=== PATIENT | female | born 1985 | race African-American/Black ===

== ENCOUNTER 2017-02-16 15:32 | Emergency (ER) | payer SELFPAY ==
[2017-02-16 16:04] LABS: Bilirubin Small (Negative); Blood, Urine Large (Negative); Glucose, Urine (Dipstick) Negative (Negative); Ketone, Urine Trace mg/dL (Negative); Nitrite Positive (Negative); Protein, Urine (Dipstick) 100 mg/dL (Neg-Trace)
[2017-02-16 16:06] LABS: Bacteria/HPF 4+ HPF (None Seen); Hyaline Casts/LPF 7-10 HYALINE CAST LPF (0-3 Hyaline); RBC/HPF GREATER THAN 50-TNTC HPF (0-3); Squamous Epithelial 21-50 HPF (0-3); WBC/HPF 21-50 HPF (0-3)
[2017-02-16 16:20] LABS: Yeast-All Forms 1+ HPF (None Seen)
[2017-02-16 16:22] LABS: #Basophils 0.1 thou/uL (0.0-0.2); #Lymphocytes 1.6 thou/uL (1.20-3.40); #Monocytes 0.9 thou/uL (0.11-0.59); %Basophils 0.4 % (0.0-1.0); %Eosinophils 0.4 % (0.0-10.0); %Lymphocytes 12.5 % (21.0-51.0); %Monocytes 7.1 % (0.0-10.0); Mean Platelet Volume 6.9 fL (7.4-10.4); Red Blood Cell (RBC) Count 4.67 mill/uL (4.20-5.40); White Blood Cell (WBC) Count 12.6 thou/uL (4.8-10.8)
[2017-02-16] MEDS ORDERED: Acetaminophen 500 MG TAB ONE (16:27)
[2017-02-16 16:39] LABS: ALT (SGPT) 18 U/L (8-55); AST (SGOT) 17 U/L (5-34); Alkaline Phosphatase 96 U/L (40-150); Anion Gap 15 mmol/L (10-20); BUN (Urea Nitrogen) 9 mg/dL (7.0-18.7); Bilirubin, Total 0.6 mg/dL (0.2-1.2); Calc. Creatinine Clearance 0 mL/min (70-130); Calcium 10.1 mg/dL (7.8-10.44); Carbon Dioxide 24 mmol/L (22-29); Chloride 100 mmol/L (98-107); Estimated GFR-MDRD Greater than 90; Globulin 4.9 g/dL (2.4-3.5); Protein, Total 9.1 g/dL (6.0-8.3)
== END 2017-02-16 18:34 | disposition home or self-care (01) ==
LOC: ERS 15:32
DX: N30.90 Cystitis, unspecified without hematuria (principal); I10 Essential (primary) hypertension; D50.0 Iron deficiency anemia secondary to blood loss (chronic); F41.9 Anxiety disorder, unspecified; F17.210 Nicotine dependence, cigarettes, uncomplicated; Z79.899 Other long term (current) drug therapy
CPT/HCPCS: 80053; 81003; 81015; 81025; 85025; 96365; 96366; 99406; J1956

== ENCOUNTER 2017-04-16 14:43 | Emergency (ER) | payer MEDICAID, OTHER, SELFPAY ==
--- NOTE | 2017-04-16 15:15 | RAD ---
THREE VIEWS LEFT HAND: Date: 04-16-17 History: Left hand pain. FINDINGS: There is no evidence of fracture, dislocation or other osseous abnormality involving the left hand. IMPRESSION: No acute osseous abnormality. POS: [facility]
[2017-04-16] MEDS ORDERED: methylPREDNISolone Sod Succ/PF 125 MG/2 ML VIAL ONE (17:21)
[2017-04-16] MEDS ORDERED: Water For Inject, Bacteriostat 30 ML ONE (17:22)
== END 2017-04-16 17:47 | disposition home or self-care (01) ==
LOC: ERS 14:43
DX: M79.89 Other specified soft tissue disorders (principal); I10 Essential (primary) hypertension; D50.0 Iron deficiency anemia secondary to blood loss (chronic); F41.9 Anxiety disorder, unspecified; F17.210 Nicotine dependence, cigarettes, uncomplicated; Z79.899 Other long term (current) drug therapy
CPT/HCPCS: 96372; J2930

== ENCOUNTER 2017-05-08 17:37 | Emergency (ER) | payer MEDICAID, OTHER, SELFPAY ==
[2017-05-08] MEDS ORDERED: Acetaminophen 500 MG TAB ONE (18:19)
[2017-05-08 19:04] LABS: Bilirubin Negative (Negative); Blood, Urine Large (Negative); Clarity TURBID (Clear); Glucose, Urine (Dipstick) Negative (Negative); Leukocyte Moderate (Negative); Nitrite Positive (Negative); Protein, Urine (Dipstick) 30 mg/dL (Neg-Trace); Specific Gravity, Urine 1.029 (1.002-1.036); Urobilinogen 0.2 mg/dL (0.2-1.0)
[2017-05-08 19:05] LABS: Pregnancy Test - Urine (BHCG) Negative (Negative); Pregu Control Background? CLEAR/WHITE (CLR/WHITE); Pregu Control Bar Appear? YES (CONTROL BAR); Specific Gravity 1.029 (1.002-1.036)
[2017-05-08 19:07] LABS: Bacteria/HPF 3+ HPF (None Seen); Hyaline Casts/LPF 7-10 HYALINE CAST LPF (0-3 Hyaline); RBC/HPF GREATER THAN 50-TNTC HPF (0-3); Squamous Epithelial 21-50 HPF (0-3)
[2017-05-08] MEDS ORDERED: HYDROcodone/Acetaminophen 10/325 mg Tablet ONE (19:11)
[2017-05-08] MEDS ORDERED: predniSONE 20 MG TAB ONE ×2 (20:37→20:41)
[2017-05-11 01:39] LABS: Chlamydia by PCR Not Detected (NotDetected); GC by PCR Not Detected (NotDetected)
== END 2017-05-08 20:44 | disposition home or self-care (01) ==
LOC: ERS 17:37
DX: M25.561 Pain in right knee (principal); M25.562 Pain in left knee; M25.572 Pain in left ankle and joints of left foot; M79.645 Pain in left finger(s); N39.0 Urinary tract infection, site not specified; D50.0 Iron deficiency anemia secondary to blood loss (chronic); F41.9 Anxiety disorder, unspecified; F17.210 Nicotine dependence, cigarettes, uncomplicated
CPT/HCPCS: 81003; 81015; 81025; 87077; 87086; 87186; 87480; 87491; 87510; 87591; 87660; 99406; J7506

== ENCOUNTER 2017-05-12 17:04 | Emergency (ER) | payer OTHER, SELFPAY ==
[2017-05-12] MEDS ORDERED: hydrOXYzine 25 MG TAB ONE (17:39)
[2017-05-12] MEDS ORDERED: Sulfameth/Trimethoprim DS 800-160mg TAB ONE (17:39)
[2017-05-12] MEDS ORDERED: Ketorolac Tromethamine 30 MG/ML VIAL ONE (17:39)
== END 2017-05-12 18:57 | disposition home or self-care (01) ==
LOC: ERS 17:04
DX: N39.0 Urinary tract infection, site not specified (principal); I10 Essential (primary) hypertension; F41.9 Anxiety disorder, unspecified; F17.210 Nicotine dependence, cigarettes, uncomplicated
CPT/HCPCS: 96372; J1885

== ENCOUNTER 2017-11-01 16:09 | Emergency (ER) | payer OTHER | END 2017-11-01 18:20 | disposition home or self-care (01) | LOC: ERS 16:09 | DX: G57.92 Unspecified mononeuropathy of left lower limb (principal); I10 Essential (primary) hypertension; D50.9 Iron deficiency anemia, unspecified; F17.210 Nicotine dependence, cigarettes, uncomplicated | CPT/HCPCS: 99283 ==

== ENCOUNTER 2017-11-29 06:13 | Emergency (ER) | payer OTHER ==
[2017-11-29] MEDS ORDERED: Ketorolac Tromethamine 60 MG/2 ML VIAL ONE (06:59)
== END 2017-11-29 07:15 | disposition home or self-care (01) ==
LOC: ERS 06:13
DX: L02.412 Cutaneous abscess of left axilla (principal); I10 Essential (primary) hypertension; F41.9 Anxiety disorder, unspecified; F17.210 Nicotine dependence, cigarettes, uncomplicated
CPT/HCPCS: 96372; J1885

== ENCOUNTER 2017-12-26 17:46 | Emergency (ER) | payer OTHER ==
[2017-12-26 18:28] LABS: #Basophils 0.1 thou/uL (0.0-0.2); #Eosinphils 0.2 thou/uL (0.0-0.7); #Monocytes 0.5 thou/uL (0.11-0.59); #Neutrophils 5.5 thou/uL (1.40-6.50); %Basophils 0.8 % (0.0-1.0); %Eosinophils 1.9 % (0.0-10.0); %Lymphocytes 32.7 % (21.0-51.0); %Monocytes 5.1 % (0.0-10.0); %Neutrophils 59.5 % (42.0-75.0); Hemoglobin 12.2 g/dL (12.0-16.0); Mean Corpuscular HGB CONC 31.9 g/dL (32.0-36.0); Mean Corpuscular Hemoglobin 27.2 pg (27.0-31.0); Mean Corpuscular Volume 85.2 fL (78.0-98.0); Mean Platelet Volume 7.2 fL (7.4-10.4); Platelet Count 385 thou/uL (130-400); RBC Distribution Width 12.6 % (11.5-14.5); White Blood Cell (WBC) Count 9.3 thou/uL (4.8-10.8)
[2017-12-26 18:33] LABS: Bilirubin Negative (Negative); Blood, Urine Trace (Negative); Clarity CLOUDY (Clear); Glucose, Urine (Dipstick) Negative (Negative); Leukocyte Negative (Negative); Nitrite Negative (Negative); Protein, Urine (Dipstick) Negative (Neg-Trace); Specific Gravity, Urine 1.024 (1.002-1.036); Urobilinogen 0.2 mg/dL (0.2-1.0); pH, Urine 6.5 (5.0-9.0)
[2017-12-26 18:37] LABS: Bacteria/HPF 1+ HPF (None Seen); Hyaline Casts/LPF 0-3 HYALINE CAST LPF (0-3 Hyaline); Pathc Cast-AUWi Flag 0.29 (0-2.49); Pregnancy Test - Urine (BHCG) Negative (Negative); Pregu Control Background? CLEAR/WHITE (CLR/WHITE); Pregu Control Bar Appear? YES (CONTROL BAR); Specific Gravity 1.024 (1.002-1.036); WBC/HPF 0-3 HPF (0-3)
[2017-12-26 18:49] LABS: ALT (SGPT) 19 U/L (8-55); AST (SGOT) 16 U/L (5-34); Albumin 4.5 g/dL (3.5-5.0); Alkaline Phosphatase 86 U/L (40-150); Anion Gap 14 mmol/L (10-20); BUN (Urea Nitrogen) 9 mg/dL (7.0-18.7); Bilirubin, Total 0.2 mg/dL (0.2-1.2); Calc. Creatinine Clearance 0 mL/min (70-130); Carbon Dioxide 21 mmol/L (22-29); Chloride 103 mmol/L (98-107); Estimated GFR-MDRD 74; Globulin 4.4 g/dL (2.4-3.5); Glucose 103 mg/dL (70-105); Lipase 26 U/L (8-78); Potassium 3.6 mmol/L (3.5-5.1); Protein, Total 8.9 g/dL (6.0-8.3); Sodium 134 mmol/L (136-145)
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
[2017-12-26] MEDS ORDERED: Ketorolac Tromethamine 60 MG/2 ML VIAL ONE (21:08)
[2017-12-26] MEDS ORDERED: Dexamethasone 10 MG/ML VIAL ONE (21:08)
== END 2017-12-26 21:33 | disposition home or self-care (01) ==
LOC: ERS 17:46
DX: M79.645 Pain in left finger(s) (principal); R52 Pain, unspecified; I10 Essential (primary) hypertension; F41.9 Anxiety disorder, unspecified; F17.210 Nicotine dependence, cigarettes, uncomplicated; Z79.899 Other long term (current) drug therapy
CPT/HCPCS: 36415; 80053; 81003; 81015; 81025; 83690; 85025; 96372; J1100; J1885

== ENCOUNTER 2017-12-29 21:00 | Emergency (ER) | payer OTHER ==
[2017-12-29 22:17] LABS: #Basophils 0.1 thou/uL (0.0-0.2); #Eosinphils 0.1 thou/uL (0.0-0.7); #Monocytes 0.7 thou/uL (0.11-0.59); #Neutrophils 10.9 thou/uL (1.40-6.50); %Basophils 0.5 % (0.0-1.0); %Eosinophils 0.4 % (0.0-10.0); %Lymphocytes 20.4 % (21.0-51.0); %Monocytes 4.9 % (0.0-10.0); %Neutrophils 73.7 % (42.0-75.0); Hemoglobin 12.2 g/dL (12.0-16.0); Mean Corpuscular HGB CONC 32.3 g/dL (32.0-36.0); Mean Corpuscular Hemoglobin 27.6 pg (27.0-31.0); Mean Corpuscular Volume 85.6 fL (78.0-98.0); Mean Platelet Volume 7.5 fL (7.4-10.4); Platelet Count 371 thou/uL (130-400); Red Blood Cell (RBC) Count 4.41 mill/uL (4.20-5.40); White Blood Cell (WBC) Count 14.7 thou/uL (4.8-10.8)
[2017-12-29 22:29] LABS: Bilirubin Negative (Negative); Blood, Urine Negative (Negative); Clarity CLOUDY (Clear); Glucose, Urine (Dipstick) Negative (Negative); Leukocyte Negative (Negative); Nitrite Negative (Negative); Protein, Urine (Dipstick) Negative (Neg-Trace); Specific Gravity, Urine 1.021 (1.002-1.036); Urobilinogen 0.2 mg/dL (0.2-1.0)
[2017-12-29 22:39] LABS: ALT (SGPT) 33 U/L (8-55); AST (SGOT) 24 U/L (5-34); Albumin 4.3 g/dL (3.5-5.0); Alkaline Phosphatase 80 U/L (40-150); Anion Gap 14 mmol/L (10-20); BUN (Urea Nitrogen) 14 mg/dL (7.0-18.7); Bilirubin, Total 0.2 mg/dL (0.2-1.2); Calc. Creatinine Clearance 0 mL/min (70-130); Calcium 10.1 mg/dL (7.8-10.44); Carbon Dioxide 27 mmol/L (22-29); Chloride 102 mmol/L (98-107); Estimated GFR-MDRD Greater than 90; Globulin 4.3 g/dL (2.4-3.5); Glucose 115 mg/dL (70-105); Potassium 3.7 mmol/L (3.5-5.1); Protein, Total 8.6 g/dL (6.0-8.3); Sodium 139 mmol/L (136-145)
== END 2017-12-30 00:46 | disposition home or self-care (01) ==
LOC: ERS 21:00
DX: R11.2 Nausea with vomiting, unspecified (principal); G62.9 Polyneuropathy, unspecified; I10 Essential (primary) hypertension; D50.9 Iron deficiency anemia, unspecified; F41.9 Anxiety disorder, unspecified; F17.210 Nicotine dependence, cigarettes, uncomplicated; Z79.899 Other long term (current) drug therapy; Z71.6 Tobacco abuse counseling
CPT/HCPCS: 36415; 80053; 81003; 85025; 99406

== ENCOUNTER 2018-06-20 14:13 | Emergency (ER) | payer BC, OTHER ==
[~2018-06-20 14:13] MED LIST: ISOVUE-370 76%-LOCM 1 ML ONE
[2018-06-20 14:54] LABS: #Basophils 0.1 thou/uL (0.0-0.2); #Eosinphils 0.1 thou/uL (0.0-0.7); #Lymphocytes 2.4 thou/uL (1.20-3.40); #Monocytes 0.5 thou/uL (0.11-0.59); #Neutrophils 5.5 thou/uL (1.40-6.50); %Basophils 0.7 % (0.0-1.0); %Eosinophils 1.1 % (0.0-10.0); %Lymphocytes 28.3 % (21.0-51.0); %Monocytes 5.5 % (0.0-10.0); %Neutrophils 64.4 % (42.0-75.0); Hemoglobin 12.3 g/dL (12.0-16.0); Mean Corpuscular Hemoglobin 26.7 pg (27.0-31.0); Mean Corpuscular Volume 83.5 fL (78.0-98.0); Mean Platelet Volume 6.9 fL (7.4-10.4); Platelet Count 371 thou/uL (130-400); RBC Distribution Width 12.8 % (11.5-14.5); Red Blood Cell (RBC) Count 4.62 mill/uL (4.20-5.40); White Blood Cell (WBC) Count 8.5 thou/uL (4.8-10.8)
--- NOTE | 2018-06-20 15:05 | RAD ---
FRONTAL VIEW CHEST: INDICATION: Chest tightness, pain. FINDINGS: The cardiac silhouette is accentuated by portable technique. No lobar consolidation or effusion. IMPRESSION: Stable chest, referencing 03/27/2013 exam. POS: [facility]
[2018-06-20 15:12] LABS: ALT (SGPT) 20 U/L (8-55); AST (SGOT) 16 U/L (5-34); Albumin 4.4 g/dL (3.5-5.0); Alkaline Phosphatase 88 U/L (40-150); Anion Gap 11 mmol/L (10-20); BUN (Urea Nitrogen) 9 mg/dL (7.0-18.7); Bilirubin, Total 0.2 mg/dL (0.2-1.2); CK (CPK) 91 U/L (29-168); Calc. Creatinine Clearance 0 mL/min (70-130); Calcium 10.2 mg/dL (7.8-10.44); Carbon Dioxide 28 mmol/L (22-29); Chloride 102 mmol/L (98-107); Estimated GFR-MDRD Greater than 90; Globulin 3.6 g/dL (2.4-3.5); Glucose 99 mg/dL (70-105); Potassium 3.6 mmol/L (3.5-5.1); Sodium 137 mmol/L (136-145)
[2018-06-20] MEDS ORDERED: hydrOXYzine Pamoate 25 mg Capsule ONE (16:05)
[2018-06-20 16:47] LABS: Pregnancy Test - Urine (BHCG) Negative (Negative); Pregu Control Background? CLEAR/WHITE (CLR/WHITE); Pregu Control Bar Appear? YES (CONTROL BAR); Specific Gravity 1.008 (1.002-1.036)
--- NOTE | 2018-06-20 17:30 | CT ---
CT ANGIOGRAM THORAX WITH IV CONTRAST AND 3D RECONSTRUCTIONS 06/20/18 HISTORY: Intermittent tension sensation left upper chest for three days. COMPARISON: CT thorax on 06/09/16 and CTA chest on 03/19/16. FINDINGS: There is suboptimal timing of the contrast bolus, and the pulmonary arteries are not well opacified. Pulmonary embolus could not be excluded based on this examination. The thoracic aorta is normal in ca liber without evidence of an aortic dissection. The thyroid gland remains diffusely enlarged and slightly heterogeneous in appearance. There is decre ased attenuation of the anterior superior mediastinum, but this is a stable finding compared to prior exams and could be related to residual thymic tissue. There are mildly prominent bilateral axillary lymph nodes. Lymph nodes in the right axilla are not enlarged by CT size criteria and overall stable in appearance compared to prior exams. However, there is a single and mildly enlarged left axillary l ymph node measuring 1.4 cm in short axis dimension. There were fluid collections seen within the adip ose layer right anterior chest wall and in the right breast on prior CT exam which are not visualized on this exam. The heart is mildly enlarged. The lungs remain clear. The visualized upper abdomen has a normal CT appearance. No other interval ch gwyn. IMPRESSION: 1. Suboptimal timing of the contrast bolus resulting in suboptimal contrast opacification of the pulmonary arteries, and a pulmonary embolus cannot be excluded based on this exam. 2. Thoracic aorta is normal in caliber without evidence of an aortic dissection. 3. Mild cardiomegaly. 4. Single mildly enlarged left axillary lymph node measuring 1.4 cm. The exact etiology is uncer tain. 5. Stable mild heterogeneity and diffuse enlargement of the thyroid gland. POS: [facility]
--- NOTE | 2018-06-20 19:56 | NM ---
VENTILATION PERFUSION STUDY: 06/20/18 HISTORY: Intermittent pinching sensation in the left upper chest for three days. RADIOPHARMACEUTICALS: 16.3 millicuries Xenon 133, gas inhaled and 6.1 millicuries technetium 99m labeled MAA, IV. COMPARISON: Chest x-ray on 06/20/18 as well as CTA chest on 06/20/18. FINDINGS: There is normal uptake in distribution of radiotracer seen on the ventilation portion of the study. T here is washout of radiotracer noted on the washout images. No ventilation defect is identified. Perfusion images demonstrate normal distribution of radiotracer throughout the lungs bilaterally. No segmental or subsegmental perfusion defect is seen. There is no ventilation perfusion mismatch. Accom panying chest x-ray also obtained on today's date demonstrates that the lungs are clear. IMPRESSION: Very low probability for pulmonary embolus. POS: [facility]
--- NOTE | 2018-06-22 12:04 | EKG ---
Test Reason : Blood Pressure : / mmHG Vent. Rate : 098 BPM Atrial Rate : 098 BPM P-R Int : 126 ms QRS Dur : 082 ms QT Int : 374 ms P-R-T Axes : 051 054 058 degrees QTc Int : 477 ms Normal sinus rhythm Nonspecific T wave abnormality Abnormal ECG Confirmed by SMITA RESENDIZ DO ([id number]), news videotape editor EFREN GAMA ([id number]) on 06/22/2018 12:04:13 PM Referred By: Confirmed By:SMITA RESENDIZ DO
== END 2018-06-20 19:34 | disposition home or self-care (01) ==
LOC: ERS 14:13
DX: R07.89 Other chest pain (principal); I10 Essential (primary) hypertension; F41.9 Anxiety disorder, unspecified; F17.210 Nicotine dependence, cigarettes, uncomplicated; Z79.899 Other long term (current) drug therapy
CPT/HCPCS: 36415; 71045; 71275; 78582; 80053; 81025; 82550; 84484; 85025; 85379; 93005; 94760; A9540; A9558; Q0177; Q9966

== ENCOUNTER 2018-10-02 15:57 | Emergency (ER) | payer BC ==
[2018-10-02 16:30] LABS: #Basophils 0.1 thou/uL (0.0-0.2); #Eosinphils 0.2 thou/uL (0.0-0.7); #Lymphocytes 2.5 thou/uL (1.20-3.40); #Monocytes 0.6 thou/uL (0.11-0.59); #Neutrophils 6.4 thou/uL (1.40-6.50); %Basophils 0.8 % (0.0-1.0); %Eosinophils 2.4 % (0.0-10.0); %Lymphocytes 25.7 % (21.0-51.0); %Monocytes 5.6 % (0.0-10.0); %Neutrophils 65.4 % (42.0-75.0); Hemoglobin 12.3 g/dL (12.0-16.0); Mean Corpuscular HGB CONC 33.3 g/dL (32.0-36.0); Mean Corpuscular Hemoglobin 27.6 pg (27.0-31.0); Mean Corpuscular Volume 82.8 fL (78.0-98.0); Mean Platelet Volume 7.2 fL (7.4-10.4); Platelet Count 311 thou/uL (130-400); RBC Distribution Width 12.8 % (11.5-14.5); Red Blood Cell (RBC) Count 4.47 mill/uL (4.20-5.40); White Blood Cell (WBC) Count 9.8 thou/uL (4.8-10.8)
[2018-10-02 17:02] LABS: ALT (SGPT) 19 U/L (8-55); AST (SGOT) 24 U/L (5-34); Albumin 4.2 g/dL (3.5-5.0); Alkaline Phosphatase 73 U/L (40-150); Anion Gap 13 mmol/L (10-20); BUN (Urea Nitrogen) 9 mg/dL (7.0-18.7); Bilirubin, Total 0.3 mg/dL (0.2-1.2); Calc. Creatinine Clearance 0 mL/min (70-130); Calcium 9.8 mg/dL (7.8-10.44); Carbon Dioxide 23 mmol/L (22-29); Chloride 103 mmol/L (98-107); Estimated GFR-MDRD Greater than 90; Globulin 4.1 g/dL (2.4-3.5); Glucose 94 mg/dL (70-105); Lipase 22 U/L (8-78); Potassium 4.1 mmol/L (3.5-5.1); Protein, Total 8.3 g/dL (6.0-8.3); Sodium 135 mmol/L (136-145)
[2018-10-02 18:39] LABS: Bilirubin Negative (Negative); Blood, Urine Trace (Negative); Clarity Clear (Clear); Glucose, Urine (Dipstick) Negative (Negative); Leukocyte Negative (Negative); Nitrite Negative (Negative); Protein, Urine (Dipstick) Negative (Neg-Trace); Specific Gravity, Urine 1.015 (1.005-1.030); Urobilinogen 0.2 mg/dL (0.2-1.0)
[2018-10-02 18:42] LABS: Pregnancy Test - Urine (BHCG) Negative (Negative); Pregu Control Background? CLEAR/WHITE (CLR/WHITE); Pregu Control Bar Appear? YES (CONTROL BAR); Specific Gravity 1.015 (1.002-1.036)
[2018-10-02 18:50] LABS: Bacteria/HPF Rare-Few HPF (None Seen); Hyaline Casts/LPF 0-3 HYALINE CAST LPF (0-3 Hyaline); RBC/HPF 0-3 HPF (0-3); WBC/HPF None Seen HPF (0-3)
--- NOTE | 2018-10-02 19:32 | CT ---
CT abdomen and pelvis noncontrast HISTORY: Left flank pain. COMPARISON: 03/23/2016. FINDINGS: Each renal collecting system, ureter, and urinary bladder are decompressed. Tiny calcificat ions, no larger than 2 mm, are present within the superior pole of the right kidney and the inferior pole of the left kidney. Lack of contrast limits evaluation for other abnormalities. Fat protrudes into an umbilical hernia th at does not contain bowel. An oval 4.4 cm cyst is present at the left adnexa. No free fluid. IMPRESSION: Tiny nonobstructing bilateral renal calculi. Left ovarian cyst, 4.4 cm.
[2018-10-02] MEDS ORDERED: Ketorolac Tromethamine 30 MG/ML VIAL ONE (19:43)
== END 2018-10-02 20:00 | disposition home or self-care (01) ==
LOC: ERS 15:57
DX: N20.0 Calculus of kidney (principal); N83.202 Unspecified ovarian cyst, left side; I10 Essential (primary) hypertension; F17.210 Nicotine dependence, cigarettes, uncomplicated
CPT/HCPCS: 36415; 74176; 80053; 81003; 81015; 81025; 83690; 85025; J1885

== ENCOUNTER 2019-05-25 16:08 | Emergency (ER) | payer BC ==
[2019-05-25 18:06] LABS: #Basophils 0.1 thou/uL (0.0-0.2); #Eosinphils 0.2 thou/uL (0.0-0.7); #Lymphocytes 2.2 thou/uL (1.20-3.40); #Monocytes 0.6 thou/uL (0.11-0.59); #Neutrophils 6.6 thou/uL (1.40-6.50); %Basophils 0.5 % (0.0-1.0); %Eosinophils 1.7 % (0.0-10.0); %Monocytes 6.2 % (0.0-10.0); %Neutrophils 68.6 % (42.0-75.0); Hemoglobin 13.1 g/dL (12.0-16.0); Mean Corpuscular HGB CONC 33.9 g/dL (32.0-36.0); Mean Corpuscular Hemoglobin 28.5 pg (27.0-31.0); Mean Corpuscular Volume 83.8 fL (78.0-98.0); Mean Platelet Volume 7.3 fL (7.4-10.4); Platelet Count 315 thou/uL (130-400); RBC Distribution Width 12.3 % (11.5-14.5); Red Blood Cell (RBC) Count 4.59 mill/uL (4.20-5.40); White Blood Cell (WBC) Count 9.6 thou/uL (4.8-10.8)
[2019-05-25 18:28] LABS: ALT (SGPT) 26 U/L (8-55); AST (SGOT) 21 U/L (5-34); Albumin 4.5 g/dL (3.5-5.0); Alkaline Phosphatase 79 U/L (40-110); Anion Gap 13 mmol/L (10-20); BUN (Urea Nitrogen) 10 mg/dL (7.0-18.7); Bilirubin, Total 0.3 mg/dL (0.2-1.2); CK (CPK) 82 U/L (29-168); Calc. Creatinine Clearance 0 mL/min (70-130); Carbon Dioxide 25 mmol/L (22-29); Chloride 103 mmol/L (98-107); Estimated GFR-MDRD Greater than 90; Globulin 3.8 g/dL (2.4-3.5); Glucose 103 mg/dL (70-105); Potassium 3.5 mmol/L (3.5-5.1); Protein, Total 8.3 g/dL (6.0-8.3); Sodium 137 mmol/L (136-145)
--- NOTE | 2019-05-25 18:30 | RAD ---
TWO VIEW CHEST: Date: 05-25-2019 Comparison: 06-20-18 History: Intermittent right sided chest pain. FINDINGS: No pneumothorax, pleural fluid, focal consolidation or alveolar edema. Heart and mediastinal contours unremarkable. IMPRESSION: No acute findings. POS: [facility]
[2019-05-25 18:51] LABS: BHCG - Serum Negative (NEGATIVE); Pregs Control Background? CLEAR/WHITE (CLR/WHITE); Pregs Control Bar Appear? YES (CONTROL BAR)
[2019-05-25] MEDS ORDERED: Aspirin 325 MG TAB ONE (20:54)
== END 2019-05-25 21:59 | disposition home or self-care (01) ==
LOC: ERS 16:08
DX: R07.9 Chest pain, unspecified (principal); Z79.899 Other long term (current) drug therapy
CPT/HCPCS: 36415; 71046; 80053; 82550; 84484; 84703; 85025; 85379; 93005

== ENCOUNTER 2019-08-22 13:55 | Outpatient (CLI) | payer BC ==
--- NOTE | 2019-08-22 15:01 | MMO ---
Bilateral MAMMO Bilat Diag DDI+COTY. CLINICAL HISTORY: Patient is 34 years old and is seen for diagnostic exam,lump or thickening and nipple abnormality in the right breast. The patient has no family history of breast cancer. The patient has no personal history of cancer. The patient has a history of bilateral Cyst Aspiration in 31 - PATIENT'S HAD MULTIPLE CYSTS REMOVED.. VIEWS: The views performed were: bilateral craniocaudal with tomosynthesis; bilateral mediolateral with tomosynthesis; bilateral mediolateral oblique with tomosynthesis; bilateral exaggerated craniocaudal; left mediolateral; and left mediolateral oblique. FILMS COMPARED: The present examination has been compared to a prior imaging study performed at [facility] on 08/22/2019. This study has been interpreted with the assistance of computer-aided detection. MAMMOGRAM FINDINGS: There are scattered fibroglandular densities. Finding 1: There are benign appearing calcifications seen in the right breast. Finding 2: There is an oval mass measuring 8 millimeters with circumscribed margins seen in the upper-outer region of the left breast. Sonographic findings suggest an intramammary lymph node. Finding 3: There is no mammographic abnormality in the region of palpable concern on the right. Ultrasound demonstrates a nonspecific skin lesion. IMPRESSION: FINDING 2: MASS IN THE LEFT BREAST IS PROBABLY BENIGN. FOLLOW-UP ULTRASOUND IN 6 MONTHS IS RECOMMENDED. FINDING 3: NO ABNORMALITY OF THE BREAST PARENCHYMA IN THE REGION OF PALPABLE CONCERN. SKIN FINDING SHOULD BE MANAGED CLINICALLY. THE RESULTS OF THIS EXAM WERE SENT TO THE PATIENT. ACR BI-RADS Category 3 - Probably benign finding - short interval follow-up suggested. [facility] will notify the patient of the need for additional imaging services. MAMMOGRAPHY NOTE: 1. A negative mammogram report should not delay a biopsy if a dominant of clinically suspicious mass is present. 2. Approximately 10% to 15% of breast cancers are not detected by mammography. 3. Adenosis and dense breasts may obscure an underlying neoplasm. Reported by: FLASH REEDER MD Electonically Signed: [id number]
--- NOTE | 2019-08-22 15:03 | MMO ---
Left US Breast Limited Lt. CLINICAL HISTORY: Patient is 34 years old and is seen for . The patient has a history of bilateral Cyst Aspiration in 32 - PATIENT'S HAD MULTIPLE CYSTS REMOVED.. VIEWS: The views performed were: . FILMS COMPARED: The present examination has been compared to a prior imaging study performed at [facility] on 08/22/2019. This study has been interpreted with the assistance of computer-aided detection. LEFT BREAST ULTRASOUND FINDINGS: There is an oval solid mass with circumscribed margins and normal sound transmission measuring 8 millimeters seen in the left breast. Hilar blood flow is demonstrated, suggesting an intramammary lymph node. IMPRESSION: SOLID MASS IN THE LEFT BREAST IS PROBABLY BENIGN. FOLLOW-UP IN 6 MONTHS IS RECOMMENDED. THE RESULTS OF THIS EXAM WERE SENT TO THE PATIENT. ACR BI-RADS Category 3 - Probably benign finding - short interval follow-up suggested. [facility] will notify the patient of the need for additional imaging services. MAMMOGRAPHY NOTE: 1. A negative mammogram report should not delay a biopsy if a dominant of clinically suspicious mass is present. 2. Approximately 10% to 15% of breast cancers are not detected by mammography. 3. Adenosis and dense breasts may obscure an underlying neoplasm. Reported by: FLASH REEDER MD Electonically Signed: [id number]
--- NOTE | 2019-08-22 15:05 | MMO ---
Right US Breast Limited Rt. CLINICAL HISTORY: Patient is 34 years old and is seen for . The patient has a history of bilateral Cyst Aspiration in 32 - PATIENT'S HAD MULTIPLE CYSTS REMOVED.. VIEWS: The views performed were: . FILMS COMPARED: The present examination has been compared to a prior imaging study performed at [facility] on 08/22/2019. This study has been interpreted with the assistance of computer-aided detection. RIGHT BREAST ULTRASOUND FINDINGS: A skin lesion is seen in the region of palpable concern with a probable sinus tract to the skin surface, suggesting a sebaceous cyst. On ultrasound, no suspicious breast findings are identified. IMPRESSION: SKIN LESION, WHICH SHOULD BE MANAGED CLINICALLY. THE RESULTS OF THIS EXAM WERE SENT TO THE PATIENT. ACR BI-RADS Category 2 - Benign finding MAMMOGRAPHY NOTE: 1. A negative mammogram report should not delay a biopsy if a dominant of clinically suspicious mass is present. 2. Approximately 10% to 15% of breast cancers are not detected by mammography. 3. Adenosis and dense breasts may obscure an underlying neoplasm. Reported by: FLASH REEDER MD Electonically Signed: [id number]
== END 2019-08-22 13:56 | disposition home or self-care (01) ==
LOC: BICMAMMO 13:55
PROVIDERS: ATTEND Family Medicine
DX: L03.818 Cellulitis of other sites (principal); N63.20 Unspecified lump in the left breast, unspecified quadrant; L98.9 Disorder of the skin and subcutaneous tissue, unspecified
CPT/HCPCS: 77066; G0279

== ENCOUNTER 2019-12-26 13:37 | Outpatient (CLI) | payer BC | END 2019-12-26 13:38 | disposition home or self-care (01) | LOC: ULT 13:37 | PROVIDERS: ATTEND Family Medicine | DX: I10 Essential (primary) hypertension (principal); I08.1 Rheumatic disorders of both mitral and tricuspid valves; Z68.39 Body mass index [BMI] 39.0-39.9, adult; Z82.79 Family history of other congenital malformations, deformations and chromosomal abnormalities | CPT/HCPCS: 93306 ==

== ENCOUNTER 2020-04-10 17:09 | Emergency (ER) | payer BC ==
[2020-04-10 19:15] LABS: #Lymphocytes 3.2 thou/uL (1.20-3.40); #Monocytes 0.8 thou/uL (0.11-0.59); #Neutrophils 11.2 thou/uL (1.40-6.50); %Basophils 0.2 % (0.0-1.0); %Eosinophils 0.3 % (0.0-10.0); %Lymphocytes 20.9 % (21.0-51.0); %Monocytes 5.5 % (0.0-10.0); %Neutrophils 73.1 % (42.0-75.0); Hemoglobin 13.3 g/dL (12.0-16.0); Mean Corpuscular HGB CONC 33.2 g/dL (32.0-36.0); Mean Corpuscular Hemoglobin 28.4 pg (27.0-31.0); Mean Corpuscular Volume 85.4 fL (78.0-98.0); Mean Platelet Volume 6.9 fL (7.4-10.4); Platelet Count 359 thou/uL (130-400); Red Blood Cell (RBC) Count 4.68 mill/uL (4.20-5.40); White Blood Cell (WBC) Count 15.3 thou/uL (4.8-10.8)
[2020-04-10 19:21] LABS: BHCG - Serum Negative (NEGATIVE); Pregs Control Background? CLEAR/WHITE (CLR/WHITE); Pregs Control Bar Appear? YES (CONTROL BAR)
--- NOTE | 2020-04-10 19:32 | RAD ---
EXAM: CHEST ONE VIEW HISTORY: Heart palpitations lightheadedness. Left arm tingling. COMPARISON: 06/20/2018 FINDINGS: Cardiac silhouette is magnified by projection stable in size. The pulmonary vasculature is within nor mal limits. The lungs are clear. The osseous structures are intact. IMPRESSION: No acute cardiopulmonary process.
[2020-04-10 19:36] LABS: ALT (SGPT) 41 U/L (8-55); AST (SGOT) 20 U/L (5-34); Albumin 4.4 g/dL (3.5-5.0); Alkaline Phosphatase 71 U/L (40-110); Anion Gap 12 mmol/L (10-20); BUN (Urea Nitrogen) 13 mg/dL (7.0-18.7); Bilirubin, Total 0.3 mg/dL (0.2-1.2); CK (CPK) 34 U/L (29-168); Calc. Creatinine Clearance 0 mL/min (70-130); Calcium 9.6 mg/dL (7.8-10.44); Carbon Dioxide 28 mmol/L (22-29); Chloride 100 mmol/L (98-107); Globulin 4.2 g/dL (2.4-3.5); Glucose 107 mg/dL (70-105); Potassium 3.4 mmol/L (3.5-5.1); Protein, Total 8.6 g/dL (6.0-8.3); Sodium 137 mmol/L (136-145)
== END 2020-04-10 20:55 | disposition home or self-care (01) ==
LOC: ERS 17:09
DX: I10 Essential (primary) hypertension (principal); Z79.899 Other long term (current) drug therapy; F17.210 Nicotine dependence, cigarettes, uncomplicated
CPT/HCPCS: 36415; 71045; 80053; 82550; 84484; 84703; 85025; 93005

== ENCOUNTER 2020-05-08 17:23 | Emergency (ER) | payer BC ==
[2020-05-08] MEDS ORDERED: Lidocaine 1% PF 5 ML VIAL ONE (17:59)
[2020-05-08] MEDS ORDERED: HYDROcodone/Acetaminophen 10/325 mg Tablet ONE (17:59)
== END 2020-05-08 19:20 | disposition home or self-care (01) ==
LOC: ERS 17:23
DX: L73.2 Hidradenitis suppurativa (principal); L02.411 Cutaneous abscess of right axilla; I10 Essential (primary) hypertension; F17.210 Nicotine dependence, cigarettes, uncomplicated; Z79.899 Other long term (current) drug therapy
CPT/HCPCS: 10060

== ENCOUNTER 2020-06-05 16:50 | Emergency (ER) | payer BC ==
[2020-06-05 17:48] LABS: #Basophils 0.1 thou/uL (0.0-0.2); #Eosinphils 0.1 thou/uL (0.0-0.7); #Lymphocytes 1.7 thou/uL (1.20-3.40); #Monocytes 0.6 thou/uL (0.11-0.59); #Neutrophils 8.6 thou/uL (1.40-6.50); %Basophils 0.5 % (0.0-1.0); %Eosinophils 0.6 % (0.0-10.0); %Monocytes 5.7 % (0.0-10.0); %Neutrophils 78.2 % (42.0-75.0); Hemoglobin 13.3 g/dL (12.0-16.0); Mean Corpuscular HGB CONC 32.9 g/dL (32.0-36.0); Mean Corpuscular Volume 85.2 fL (78.0-98.0); Mean Platelet Volume 7.2 fL (7.4-10.4); Platelet Count 264 thou/uL (130-400); RBC Distribution Width 14.3 % (11.5-14.5); Red Blood Cell (RBC) Count 4.76 mill/uL (4.20-5.40)
[2020-06-05 18:04] LABS: ALT (SGPT) 31 U/L (8-55); AST (SGOT) 19 U/L (5-34); Albumin 4.4 g/dL (3.5-5.0); Alkaline Phosphatase 75 U/L (40-110); Anion Gap 13 mmol/L (10-20); BUN (Urea Nitrogen) 17 mg/dL (7.0-18.7); Bilirubin, Total 0.3 mg/dL (0.2-1.2); Calc. Creatinine Clearance 0 mL/min (70-130); Calcium 9.6 mg/dL (7.8-10.44); Carbon Dioxide 24 mmol/L (22-29); Chloride 102 mmol/L (98-107); Glucose 104 mg/dL (70-105); Potassium 3.8 mmol/L (3.5-5.1); Protein, Total 8.4 g/dL (6.0-8.3); Sodium 135 mmol/L (136-145)
== END 2020-06-05 20:34 | disposition home or self-care (01) ==
LOC: ERS 16:50
DX: L73.2 Hidradenitis suppurativa (principal); R53.1 Weakness; I10 Essential (primary) hypertension; M06.9 Rheumatoid arthritis, unspecified; F17.210 Nicotine dependence, cigarettes, uncomplicated; Z79.899 Other long term (current) drug therapy
CPT/HCPCS: 36415; 80053; 85025; 93005

== ENCOUNTER 2020-07-19 12:30 | Outpatient (CLI) | payer BC | END 2020-07-19 12:31 | disposition home or self-care (01) | PROVIDERS: ATTEND Family Medicine | DX: I49.8 Other specified cardiac arrhythmias (principal) | CPT/HCPCS: 93225; 93226 ==

== ENCOUNTER 2021-03-16 04:34 | Emergency (ER) | payer BC ==
[2021-03-16] MEDS ORDERED: Lidocaine 1% (PF) 30 ML VIAL ONE (05:58)
[2021-03-16] MEDS ORDERED: Ibuprofen 200 MG TAB ONE (06:38)
== END 2021-03-16 06:40 | disposition home or self-care (01) ==
LOC: ERS 04:34
DX: L02.213 Cutaneous abscess of chest wall (principal)
CPT/HCPCS: 10060; J2001

== ENCOUNTER 2021-06-08 15:30 | Emergency (ER) | payer BC ==
[2021-06-08] MEDS ORDERED: Xylocaine 1% w/ Epi 1:100K 10 ML VIAL ONE (16:04)
[2021-06-08] MEDS ORDERED: HYDROcodone/Acetaminophen 5/325 mg Tablet ONE (16:04)
== END 2021-06-08 17:19 | disposition home or self-care (01) ==
LOC: ERS 15:30
DX: L02.213 Cutaneous abscess of chest wall (principal); L73.2 Hidradenitis suppurativa; I10 Essential (primary) hypertension; F17.210 Nicotine dependence, cigarettes, uncomplicated
CPT/HCPCS: 10060

== ENCOUNTER 2021-07-14 11:28 | Emergency (ER) | payer BC ==
[2021-07-14 15:15] LABS: #Basophils 0.1 thou/uL (0.0-0.2); #Eosinphils 0.1 thou/uL (0.0-0.7); #Monocytes 0.6 thou/uL (0.11-0.59); #Neutrophils 6.7 thou/uL (1.40-6.50); %Basophils 0.7 % (0.0-1.0); %Eosinophils 0.8 % (0.0-10.0); %Lymphocytes 28.7 % (21.0-51.0); %Monocytes 5.4 % (0.0-10.0); %Neutrophils 64.5 % (42.0-75.0); Hemoglobin 14.2 g/dL (12.0-16.0); Mean Corpuscular HGB CONC 32.7 g/dL (32.0-36.0); Mean Corpuscular Hemoglobin 29.6 pg (27.0-31.0); Mean Corpuscular Volume 90.4 fL (78.0-98.0); Mean Platelet Volume 7.1 fL (7.4-10.4); Platelet Count 297 thou/uL (130-400); RBC Distribution Width 12.9 % (11.5-14.5); Red Blood Cell (RBC) Count 4.82 mill/uL (4.20-5.40); White Blood Cell (WBC) Count 10.4 thou/uL (4.8-10.8)
[2021-07-14 15:30] LABS: BHCG - Serum Negative (NEGATIVE); Pregs Control Background? CLEAR/WHITE (CLR/WHITE); Pregs Control Bar Appear? YES (CONTROL BAR)
[2021-07-14 15:34] LABS: ALT (SGPT) 24 U/L (8-55); AST (SGOT) 17 U/L (5-34); Albumin 4.5 g/dL (3.5-5.0); Alkaline Phosphatase 68 U/L (40-110); Anion Gap 15 mmol/L (10-20); BUN (Urea Nitrogen) 11 mg/dL (7.0-18.7); Bilirubin, Total 0.4 mg/dL (0.2-1.2); Calc. Creatinine Clearance 0 mL/min (70-130); Calcium 10.3 mg/dL (7.8-10.44); Carbon Dioxide 26 mmol/L (22-29); Chloride 102 mmol/L (98-107); Globulin 3.9 g/dL (2.4-3.5); Glucose 115 mg/dL (70-105); Protein, Total 8.4 g/dL (6.0-8.3); Sodium 140 mmol/L (136-145)
[2021-07-14] MEDS ORDERED: Ketorolac Tromethamine 30 MG/ML VIAL ONE (15:36)
[2021-07-14] MEDS ORDERED: Lidocaine 1% (PF) 30 ML VIAL ONE (18:18)
[2021-07-14] MEDS ORDERED: Xylocaine 1% w/ Epi 1:100K 10 ML VIAL ONE (18:21)
== END 2021-07-14 19:39 | disposition home or self-care (01) ==
LOC: ERS 11:28
DX: L02.11 Cutaneous abscess of neck (principal); I10 Essential (primary) hypertension; F17.210 Nicotine dependence, cigarettes, uncomplicated; Z79.899 Other long term (current) drug therapy
CPT/HCPCS: 36415; 70491; 80053; 84703; 85025; 96374; J1885; J2001

== ENCOUNTER 2021-08-19 14:19 | Emergency (ER) | payer BC ==
[2021-08-19] MEDS ORDERED: Xylocaine 1% w/ Epi 1:100K 10 ML VIAL ONE (16:00)
== END 2021-08-19 16:30 | disposition home or self-care (01) ==
LOC: ERS 14:19
DX: N61.1 Abscess of the breast and nipple (principal); L03.313 Cellulitis of chest wall; I10 Essential (primary) hypertension; M19.90 Unspecified osteoarthritis, unspecified site; F17.210 Nicotine dependence, cigarettes, uncomplicated; Z79.899 Other long term (current) drug therapy; Z79.52 Long term (current) use of systemic steroids
CPT/HCPCS: 10060

== ENCOUNTER 2021-10-17 14:17 | Emergency (ER) | payer BC ==
[2021-10-17] MEDS ORDERED: Ketorolac Tromethamine 30 MG/ML VIAL ONE (14:36)
[2021-10-17 15:00] LABS: #Basophils 0.1 thou/uL (0.0-0.2); #Eosinphils 0.1 thou/uL (0.0-0.7); #Lymphocytes 2.9 thou/uL (1.20-3.40); #Monocytes 0.6 thou/uL (0.11-0.59); #Neutrophils 6.3 thou/uL (1.40-6.50); %Basophils 0.9 % (0.0-1.0); %Eosinophils 1.3 % (0.0-10.0); %Lymphocytes 28.6 % (21.0-51.0); %Neutrophils 63.2 % (42.0-75.0); Hemoglobin 13.5 g/dL (12.0-16.0); Mean Corpuscular HGB CONC 32.5 g/dL (32.0-36.0); Mean Corpuscular Hemoglobin 29.4 pg (27.0-31.0); Mean Corpuscular Volume 90.5 fL (78.0-98.0); Mean Platelet Volume 7.1 fL (7.4-10.4); Platelet Count 253 thou/uL (130-400); RBC Distribution Width 12.4 % (11.5-14.5); Red Blood Cell (RBC) Count 4.58 mill/uL (4.20-5.40)
[2021-10-17] MEDS ORDERED: Lidocaine 1% (PF) 30 ML VIAL ONE (15:13)
[2021-10-17 15:14] LABS: ALT (SGPT) 40 U/L (8-55); AST (SGOT) 21 U/L (5-34); Albumin 4.2 g/dL (3.5-5.0); Alkaline Phosphatase 63 U/L (40-110); Anion Gap 13 mmol/L (10-20); BUN (Urea Nitrogen) 13 mg/dL (7.0-18.7); Bilirubin, Total 0.4 mg/dL (0.2-1.2); Calc. Creatinine Clearance 0 mL/min (70-130); Calcium 9.8 mg/dL (7.8-10.44); Carbon Dioxide 27 mmol/L (22-29); Chloride 101 mmol/L (98-107); Estimated GFR 99; Globulin 3.3 g/dL (2.4-3.5); Glucose 105 mg/dL (70-105); Potassium 3.8 mmol/L (3.5-5.1); Protein, Total 7.5 g/dL (6.0-8.3); Sodium 137 mmol/L (136-145)
[2021-10-17] MEDS ORDERED: Lidocaine 1% PF 5 ML VIAL ONE (15:14)
== END 2021-10-17 15:55 | disposition home or self-care (01) ==
LOC: ERS 14:17
DX: N61.1 Abscess of the breast and nipple (principal); F17.210 Nicotine dependence, cigarettes, uncomplicated; I10 Essential (primary) hypertension; Z79.899 Other long term (current) drug therapy
CPT/HCPCS: 10060; 36415; 80053; 83605; 85025; 96372; J1885; J2001

== ENCOUNTER 2021-11-17 19:06 | Emergency (ER) | payer BC ==
[2021-11-17 19:48] LABS: #Basophils 0.1 thou/uL (0.0-0.2); #Lymphocytes 1.8 thou/uL (1.20-3.40); #Monocytes 0.4 thou/uL (0.11-0.59); #Neutrophils 6.7 thou/uL (1.40-6.50); %Basophils 0.6 % (0.0-1.0); %Eosinophils 0.5 % (0.0-10.0); %Lymphocytes 19.7 % (21.0-51.0); %Monocytes 4.6 % (0.0-10.0); %Neutrophils 74.6 % (42.0-75.0); Hemoglobin 13.9 g/dL (12.0-16.0); Mean Corpuscular HGB CONC 33.1 g/dL (32.0-36.0); Mean Corpuscular Hemoglobin 29.3 pg (27.0-31.0); Mean Corpuscular Volume 88.5 fL (78.0-98.0); Mean Platelet Volume 7.3 fL (7.4-10.4); Platelet Count 243 thou/uL (130-400); RBC Distribution Width 12.2 % (11.5-14.5); Red Blood Cell (RBC) Count 4.74 mill/uL (4.20-5.40)
[2021-11-17 19:53] LABS: Bacteria/HPF None Seen HPF (None Seen); Bilirubin Negative (Negative); Blood, Urine 1+ (Negative); Clarity Clear (Clear); Glucose, Urine (Dipstick) Normal (Negative); Ketone, Urine Negative (Negative); Leukocyte Negative Leu/uL (Negative); Nitrite Negative (Negative); Protein, Urine (Dipstick) Negative (Neg-Trace); Specific Gravity, Urine 1.017 (1.002-1.036); Urobilinogen Normal mg/dL (Less than 2); WBC/HPF 0-3 HPF (0-3)
[2021-11-17 19:56] LABS: BHCG - Serum Negative (NEGATIVE); Pregs Control Background? CLEAR/WHITE (CLR/WHITE); Pregs Control Bar Appear? YES (CONTROL BAR)
[2021-11-17 20:07] LABS: ALT (SGPT) 34 U/L (8-55); AST (SGOT) 25 U/L (5-34); Albumin 4.3 g/dL (3.5-5.0); Alkaline Phosphatase 67 U/L (40-110); Anion Gap 15 mmol/L (10-20); BUN (Urea Nitrogen) 8 mg/dL (7.0-18.7); Bilirubin, Total 0.5 mg/dL (0.2-1.2); Calc. Creatinine Clearance 0 mL/min (70-130); Calcium 9.7 mg/dL (7.8-10.44); Carbon Dioxide 23 mmol/L (22-29); Chloride 100 mmol/L (98-107); Estimated GFR 105; Globulin 3.8 g/dL (2.4-3.5); Glucose 111 mg/dL (70-105); Potassium 3.4 mmol/L (3.5-5.1); Protein, Total 8.1 g/dL (6.0-8.3); Sodium 135 mmol/L (136-145)
== END 2021-11-17 23:20 | disposition home or self-care (01) ==
LOC: ERS 19:06
DX: N83.202 Unspecified ovarian cyst, left side (principal); I10 Essential (primary) hypertension; M19.90 Unspecified osteoarthritis, unspecified site; F17.210 Nicotine dependence, cigarettes, uncomplicated; Z79.899 Other long term (current) drug therapy
CPT/HCPCS: 36415; 74176; 80053; 81003; 81015; 83690; 84703; 85025

== ENCOUNTER 2022-01-17 09:05 | Emergency (ER) | payer BC ==
[2022-01-17] MEDS ORDERED: HYDROcodone/Acetaminophen 10/325 mg Tablet ONE (10:40)
[2022-01-17] MEDS ORDERED: Lidocaine 1% PF 5 ML VIAL ONE ×2 (10:41→11:22)
== END 2022-01-17 11:37 | disposition home or self-care (01) ==
LOC: ERS 09:05
DX: N61.1 Abscess of the breast and nipple (principal); I10 Essential (primary) hypertension; F17.200 Nicotine dependence, unspecified, uncomplicated; Z79.899 Other long term (current) drug therapy
CPT/HCPCS: 10060

== ENCOUNTER → 2024-03-06 | Emergency (ER) | payer BC ==
[~2024-03-06] MED LIST changes: -ISOVUE-370 76%-LOCM 1 ML ONE; +Lidocaine 1% w/Epinephrine 1:100K 20 ML VIAL ONE; +Tranexamic Acid 1,000 MG/10 ML VIAL ONE
== END ==
LOC: ERS 04:18
DX: L76.21 Postprocedural hemorrhage of skin and subcutaneous tissue following a dermatologic procedure (principal); I10 Essential (primary) hypertension; F17.210 Nicotine dependence, cigarettes, uncomplicated
CPT/HCPCS: 96365